=== PATIENT | female | born 1990 | race African-American/Black ===

== ENCOUNTER 2016-10-24 05:45 | Emergency (ER) | payer OTHER ==
--- NOTE | ~2016-10-24 | US106 ---
[facility] A Service of [facility] & [facility] RADIOLOGY TEXT RESULTS PATIENT: RAFI MCKEON LOCATION: [facility] : [birth year] UNIT #: [id number] AGE: [address]: Kailey Jules MD SEX: F ORDER DR: [id number] [place], [place] [address] [id number] MR#: [id number] Acc #: [id number] NAME: RAFI MCKEON : 1990 SEX: F STUDY DATE/TIME: 10/24/2016 8:38 UNIT: [facility] ROOM: STUDY DESCRIPTION: US Preg Uterus Transvaginal Attending Physician: Kailey Jules M.D. Referring Physician: Jefry Solorzano M.D. Ordering Physician: Ed Alfonso Cortez M.D. Primary Care Physician: No Primary Care Physician MEDICAL IMAGING REPORT This report is preliminary unless electronic signature is present EXAM Pelvic ultrasound. DATE OF EXAM 10/24/2016 INDICATIONS Vaginal bleeding. Quantitative hCG of 64,937. A3. Last menstrual period 09/14/2016. FINDINGS The uterus is retroverted. There is a single intrauterine gestational sac. There is a yolk sac. The mean gestational sac diameter is 1.9. There is a crown-rump length of 4 mm consistent gestational age of 6 weeks 1 day. Positive heart rate of 101 beats per minute. There is some mild hypoechoic material within the endometrial canal, concerning for a small subchorionic hemorrhage. The cervix is closed. The right ovary measures 3.6 x 3.5 x 2.1 cm. The left ovary measures 4.1 x 2 x 2.8 cm. Echogenicity and echotexture of the ovaries are within normal limits. No adnexal mass or free fluid. IMPRESSION 1. Live intrauterine with an estimated gestational age of 6 weeks, 1 day. 2. heart rate of 101 beats per minute. This is at the lower limits of normal and close to bradycardia. Close clinical follow up and if necessary, repeat pelvic ultrasound is recommended. 3. Small subchorionic hemorrhage. [facility] A Service of [facility] & [facility] RADIOLOGY TEXT RESULTS PATIENT: RAFI [id number] [birth year] UNIT #: [id number] AGE: [address]: Kailey Jules MD SEX: F ORDER DR: Dictated by... Juancho Juarez M.D. THIS IS AN ELECTRONICALLY VERIFIED REPORT Juancho Juarez M.D. at 10/25/2016 10:42 AM RAN/atylor TD: 10/25/2016 00:09 JOB #: [id number] MEDICAL IMAGING REPORT Page 1 of 1 COPY
[2016-10-24 06:06] LABS: URINE SOURCE CLEAN CATCH
[2016-10-24 06:10] LABS: URINE APPEARANCE CLEAR; URINE BILIRUBIN NEG (NEG); URINE BLOOD 3+ (NEG); URINE COLOR YELLOW; URINE GLUCOSE NEG (NEG); URINE KETONE NEG (NEG); URINE LEUKOCYTE ESTERASE NEG (NEG); URINE NITRATE NEG (NEG); URINE PROTEIN NEG (NEG); URINE SPECIFIC GRAVITY 1.029 (1.003-1.035); URINE UROBILINOGEN 0.2 MG/DL (NEG)
[2016-10-24 06:13] LABS: BASOPHIL# 0.1 X10e3 (0-0.3); BASOPHIL% 0.8 % (0-2.5); EOSINOPHIL# 0.4 X10e3 (0-0.7); HEMATOCRIT 36.1 % (35.0-45.0); HEMOGLOBIN 11.4 gm/dL (12.0-16.0); LYMPHOCYTE# 2.5 X10e3 (1.0-3.5); LYMPHOCYTE% 28.5 % (17.0-45.0); MEAN CELL VOLUME 89.1 FL (83-96); MEAN CORPUSCULAR HEMOGLOBIN 28.2 PG (28-34); MEAN CORPUSCULAR HGB CONC 31.6 g/dL (30-36); MEAN PLATELET VOLUME 11.7 FL (6.5-11.5); MONOCYTE# 0.9 X10e3 (0-1.0); MONOCYTE% 9.7 % (3.0-12.0); NEUTROPHIL# 4.9 X10e3 (1.5-7.1); RED BLOOD COUNT 4.06 X10e (3.90-5.30); RED CELL DISTRIBUTION WIDTH 15.7 % (11.0-15.5); WHITE BLOOD COUNT 8.8 X10e3 (4.0-10.5)
[2016-10-24 06:13] LABS: CULTURE INDICATED? YES; U HYALINE CASTS AUWI 0-2 /[LPF]; URINE BACTERIA AUWI 1+ (NEGATIVE); URINE SQUAMOUS EPITHELIAL CELL FEW /[HPF]
[2016-10-24 06:34] LABS: PLATELET COUNT 188 X10e3 (140-420)
[2016-10-24 06:35] LABS: DIFF IND NO
[2016-10-24 06:37] LABS: BILIRUBIN,TOTAL 0.3 mg/dL (0.2-2.0); CALCIUM SERUM 9.6 mg/dL (8.4-10.2); CREATININE SERUM 0.6 mg/dL (0.6-1.4); GLOM FILT RATE Estimated 147.9 mL/min (>60); POTASSIUM 4.3 mmol/L (3.5-5.1); PROTEIN TOTAL SERUM 7.4 g/dL (6.0-8.3)
[2016-10-27 08:24] LABS: CHLAMYDIA TRACH Not Detected (Not Detected); N GONOR Not Detected (Not Detected)
== END 2016-10-24 10:18 | disposition home or self-care (01) ==
LOC: CED 05:45
PROVIDERS: Nurse Practitioner
DX: O99.89 Other specified diseases and conditions complicating pregnancy, childbirth and the puerperium (principal); R10.9 Unspecified abdominal pain; O99.331 Smoking (tobacco) complicating pregnancy, first trimester; F17.210 Nicotine dependence, cigarettes, uncomplicated; Z3A.01 Less than 8 weeks gestation of pregnancy
CPT/HCPCS: 76817; 80053; 81003; 84702; 85025; 86900; 86901; 87086; 87491; 87591; 87808; 87905; 99284

== ENCOUNTER 2017-01-18 17:59 | Emergency (ER) | payer OTHER ==
--- NOTE | ~2017-01-18 | CR281 ---
[facility] A Service of [facility] & [facility] RADIOLOGY TEXT RESULTS PATIENT: RAFI MCKEON LOCATION: [facility] : [birth year] UNIT #: [id number] AGE: [address]: SARMAD ALFORD SEX: F ORDER DR: [id number] [facility] [address] [place], [place] [address] [id number] MR#: [id number] Acc #: [id number] NAME: RAFI MCKEON : 1990 SEX: F STUDY DATE/TIME: 01/18/2017 18:56 UNIT: [facility] ROOM: STUDY DESCRIPTION: CR Wrist Min 3 View Lt Attending Physician: Sarmad Alford Aprn Ordering Physician: Ed Doctor [id number] [facility] Primary Care Physician: Primary Care Physician No MEDICAL IMAGING REPORT This report is preliminary unless electronic signature is present EXAM Left wrist INDICATION Posterior wrist pain for 2 weeks. FINDINGS Three views of the left wrist without comparison. There is no acute fracture or dislocation. Alignment is anatomic. No foreign body. IMPRESSION Negative left wrist. Dictated by... Juancho Juarez M.D. THIS IS AN ELECTRONICALLY VERIFIED REPORT Juancho Juarez M.D. at 01/19/2017 10:50 AM RAN/marylin TD: 01/19/2017 09:31 JOB #: [id number] MEDICAL IMAGING REPORT Page 1 of 1 COPY
== END 2017-01-18 21:33 | disposition home or self-care (01) ==
LOC: CFTX 17:59 → CED 17:59 → CFTX 19:27
DX: O99.89 Other specified diseases and conditions complicating pregnancy, childbirth and the puerperium (principal); M00-M99 Diseases of the musculoskeletal system and connective tissue; O99.519 Diseases of the respiratory system complicating pregnancy, unspecified trimester; J45.909 Unspecified asthma, uncomplicated; O99.330 Smoking (tobacco) complicating pregnancy, unspecified trimester; F17.210 Nicotine dependence, cigarettes, uncomplicated
CPT/HCPCS: 29125; 73110; 99283

== ENCOUNTER 2017-01-24 12:57 | Emergency (ER) | payer OTHER | END 2017-01-24 13:50 | disposition home or self-care (01) | LOC: CED 12:57 | DX: Z53.21 Procedure and treatment not carried out due to patient leaving prior to being seen by health care provider (principal) ==

== ENCOUNTER 2017-02-10 00:47 | Emergency (ER) | payer OTHER ==
[~2017-02-10] VITALS: Ht 162.6 cm; Wt 103.0 kg
[2017-02-10 01:33] LABS: URINE SOURCE CLEAN CATCH
[2017-02-10 01:38] LABS: URINE APPEARANCE CLEAR; URINE BILIRUBIN NEG (NEG); URINE BLOOD NEG (NEG); URINE COLOR YELLOW; URINE GLUCOSE NEG (NEG); URINE KETONE 1+ (NEG); URINE LEUKOCYTE ESTERASE 2+ (NEG); URINE NITRATE NEG (NEG); URINE PH 6.5 (5-8); URINE PROTEIN NEG (NEG)
[2017-02-10 01:41] LABS: U HYALINE CASTS AUWI 0-2 /[LPF]; URBCS1 AUWI 0-2 /[HPF] (0-2); URINE BACTERIA AUWI 3+ (NEGATIVE); URINE SQUAMOUS EPITHELIAL CELL OCC /[HPF]; UWBCS1 AUWI 25-50 (0-5)
== END 2017-02-10 02:20 | disposition home or self-care (01) ==
LOC: CED 00:47
PROVIDERS: Emergency Medicine
DX: O23.12 Infections of bladder in pregnancy, second trimester (principal); N30.00 Acute cystitis without hematuria; O99.89 Other specified diseases and conditions complicating pregnancy, childbirth and the puerperium; M54.5 Low back pain; O99.332 Smoking (tobacco) complicating pregnancy, second trimester; F17.200 Nicotine dependence, unspecified, uncomplicated; Z88.8 Allergy status to other drugs, medicaments and biological substances; Z3A.21 21 weeks gestation of pregnancy
CPT/HCPCS: 81003; 84703; 99284

== ENCOUNTER 2017-04-02 09:03 | Emergency (ER) | payer OTHER ==
[~2017-04-02] VITALS: Ht 162.6 cm; Wt 103.4 kg
== END 2017-04-02 10:27 | disposition home or self-care (01) ==
LOC: CED 09:03
DX: M25.531 Pain in right wrist (principal); F17.200 Nicotine dependence, unspecified, uncomplicated; J45.909 Unspecified asthma, uncomplicated; Z88.8 Allergy status to other drugs, medicaments and biological substances
CPT/HCPCS: 99283